=== PATIENT | male | born 1970 | race Caucasian/White ===

== ENCOUNTER 2020-10-16 17:51 | Emergency (ER) | payer BC ==
[~2020-10-16] VITALS: Ht 175.3 cm; Wt 96.0 kg
[2020-10-16 18:47] LABS: BASOPHILS % 0.4 % (0.0-2.0); EOSINOPHILS % 1.9 % (0.0-5.0); HEMATOCRIT. 44.6 % (42.0-52.0); HEMOGLOBIN. 15.6 g/dL (14.0-18.0); LYMPHOCYTES % 32.4 % (20.0-50.0); MEAN CORPUSCULAR HEMOGLOBIN 30.6 pg (28.0-32.0); MEAN CORPUSCULAR VOLUME 87.3 fL (80.0-94.0); MEAN PLATELET VOLUME 8.4 fl (7.4-10.4); MONOCYTES % 8.5 % (2.0-8.0); NEUTROPHILS % 56.8 % (40.0-76.0); PLATELET 154 x1000/uL (130-400); RED BLOOD CELL COUNT 5.11 mill/uL (4.7-6.1); RED CELL DISTRIBUTION WIDTH 12.1 % (11.6-14.6)
[2020-10-16 18:54] LABS: CHLORIDE 106 mEq/L (98-107)
[2020-10-16 18:58] LABS: ETHANOL BLOOD < 10 mg/dL
[2020-10-16 19:05] LABS: CARBAMAZEPINE 2.3 ug/mL (4-12)
[2020-10-16 19:12] LABS: PHENOBARBITAL < 2.1 ug/mL (15.0-40.0)
[2020-10-16 19:47] VITALS: BP 123/87
== END 2020-10-16 19:59 | disposition home or self-care (01) ==
LOC: ER 18:46
DX: R56.9 Unspecified convulsions (principal)
CPT/HCPCS: 36415; 71045; 80053; 80156; 80184; 80320; 83605; 84443; 84484; 85025; 93005; 99285; G0480

== ENCOUNTER 2022-04-21 19:11 | Emergency (ER) | payer BC ==
[~2022-04-21] VITALS: Ht 185.4 cm; Wt 86.0 kg
[2022-04-21] MEDS ORDERED: LEVETIRACETAM 500MG PREMIX 100 ML IV ONE (19:30)
[2022-04-21 20:25] LABS: BASOPHILS % 0.4 % (0.0-2.0); EOSINOPHILS % 0.2 % (0.0-5.0); HEMATOCRIT. 44.8 % (42.0-52.0); HEMOGLOBIN. 15.4 g/dL (14.0-18.0); LYMPHOCYTES % 10.6 % (20.0-50.0); MEAN CORPUSCULAR HEMOGLOBIN 29.9 pg (28.0-32.0); MEAN CORPUSCULAR VOLUME 86.8 fL (80.0-94.0); MEAN PLATELET VOLUME 7.7 fl (7.4-10.4); MONOCYTES % 7.8 % (2.0-8.0); PLATELET 196 x1000/uL (130-400); RED BLOOD CELL COUNT 5.16 mill/uL (4.7-6.1); RED CELL DISTRIBUTION WIDTH 12.1 % (11.6-14.6)
[2022-04-21 20:32] LABS: CHLORIDE 105 mEq/L (98-107)
[2022-04-21 21:00] VITALS: BP 129/85
== END 2022-04-21 23:26 | disposition home or self-care (01) ==
LOC: ER 19:40
DX: G40.909 Epilepsy, unspecified, not intractable, without status epilepticus (principal)
CPT/HCPCS: 36415; 80053; 85025; 96365; 99284; J1953; Z7610

== ENCOUNTER 2024-04-05 17:10 | Emergency (ER) | payer BC ==
[~2024-04-05] VITALS: Ht 177.8 cm; Wt 90.0 kg
[2024-04-05 17:11] VITALS: BP 156/75; PULSE 111; RESP 18; TEMP 36.6; O2SAT 99
== END 2024-04-05 19:10 | disposition left against medical advice (07) ==
LOC: ER 17:10
DX: R56.9 Unspecified convulsions (principal); Z88.8 Allergy status to other drugs, medicaments and biological substances
CPT/HCPCS: 99283